=== PATIENT | male | born 1995 | race Hispanic/Latino ===

== ENCOUNTER 2025-08-20 20:43 | Observation (INO) | payer SELFPAY ==
[2025-08-20 21:41] LABS: #Basophils 0.06 10x3/uL (0.0-0.2); #Eosinophils 0.29 10x3/uL (0.0-0.5); #Monocytes 0.69 10x3/uL (0.0-1.1); #Neutrophils 4.97 10x3/uL (1.5-8.4); %Basophils 0.7 % (0.0-2.0); %Eosinophils 3.3 % (0.0-6.0); %Lymphocytes 31.0 % (18.0-47.0); %Monocytes 7.9 % (0.0-10.0); %Neutrophils 57.0 % (40.0-75.0); Hematocrit 49.2 % (38.8-50.0); Hemoglobin 16.9 g/dL (13.5-17.5); Mean Corpuscular Hemoglobin 29.2 pg (27.0-33.0); Mean Corpuscular Volume 85.0 fL (81.2-95.1); Platelet Count 275 10x3/uL (150-450); Red Blood Cell (RBC) Count 5.79 10x6/uL (4.32-5.72); White Blood Cell (WBC) Count 8.73 10x3/uL (3.5-10.5)
[2025-08-20 21:55] LABS: ALT (SGPT) 128 U/L (Less than 45); AST (SGOT) 41 U/L (11-34); Albumin 4.4 g/dL (3.1-4.5); Alkaline Phosphatase 136 U/L (40-110); Anion Gap 13 mmol/L (10-20); BUN (Urea Nitrogen) 21 mg/dL (8.9-20.6); Bilirubin, Total 1.5 mg/dL (0.3-1.2); Calc. Creatinine Clearance 0 mL/min (70-130); Calcium 8.7 mg/dL (7.8-10.44); Carbon Dioxide 24 mmol/L (22-29); Chloride 107 mmol/L (98-107); Globulin 2.5 g/dL (2.4-3.5); Glucose 140 mg/dL (70-105); Potassium 3.8 mmol/L (3.5-5.1); Sodium 140 mmol/L (136-145)
[2025-08-20 22:01] LABS: Troponin I Less than 0.010 ng/mL (< 0.028)
[2025-08-21 00:09] LABS: Troponin I Less than 0.010 ng/mL (< 0.028)
[2025-08-21] MEDS ORDERED: Nitroglycerin 0.4 MG TAB (25 Tab Bottle) SL PRN (01:53)
[2025-08-21 03:09] VITALS: BMI 47.7
[2025-08-21] MEDS: Aspirin 325 MG TAB PO SCH (04:01)
[2025-08-21] MEDS: Enoxaparin 40 MG (0.4 mL) SYRINGE SC SCH (04:01)
[2025-08-21 04:19] LABS: Cardiac Risk 3.2 (Less than 4.5); Cholesterol 126 mg/dl (< 200 Desired); HDL Cholesterol 40 mg/dL (>60 Neg Risk); LDL Cholesterol, Calculated 63 mg/dL; Magnesium 2.0 mg/dL (1.6-2.6); Triglycerides 117 mg/dL (Less than 150)
[2025-08-21 04:25] LABS: Troponin I Less than 0.010 ng/mL (< 0.028)
[2025-08-21] MEDS: FLU (Fluarix Triv) 25-26 (6MOS UP)/PF 45 MCG/0.5 ML Syringe IM ONE (04:48)
[2025-08-21] MEDS: Aspirin Chewable 81 MG TAB PO SCH (09:29)
[2025-08-21] MEDS ORDERED: Dextrose 50% Abboject 50 ML SYRINGE SLOW IVP PRN (10:48)
[2025-08-21] MEDS ORDERED: Glucagon 1 MG/ML KIT IM PRN (10:48)
[2025-08-21 16:07] VITALS: TEMP 98
== END 2025-08-21 17:00 | disposition home or self-care (01) ==
LOC: CSHERS 20:43 → CSHERHOLD 08-21 01:53 → CSHICU 08-21 03:28
PROVIDERS: ADMIT Family Medicine; ATTEND Family Medicine
PROC: B24BZZZ Ultrasonography of Heart with Aorta (ICD-10-PCS; principal; 2025-08-21)
DX: R07.89 Other chest pain (principal); G47.34 Idiopathic sleep related nonobstructive alveolar hypoventilation; G47.33 Obstructive sleep apnea (adult) (pediatric); E11.9 Type 2 diabetes mellitus without complications; R09.02 Hypoxemia; R74.8 Abnormal levels of other serum enzymes; E66.9 Obesity, unspecified; Z68.41 Body mass index [BMI] 40.0-44.9, adult; Z79.84 Long term (current) use of oral hypoglycemic drugs; Z79.899 Other long term (current) drug therapy
CPT/HCPCS: 36415; 36416; 71045; 76700; 80053; 80061; 83735; 83880; 84484; 85025; 85379; 86480; 87428; 93005; 93010; 93306; 94660; 96372; G0378; J1650